=== PATIENT | female | born 1955 | race Caucasian/White ===

== ENCOUNTER 2019-07-20 13:05 | Outpatient (CLI) | payer MEDICARE, BC, SELFPAY ==
--- NOTE | 2019-07-20 13:30 | XR_ITS ---
WS: [id number] SCREENING DEXA SCAN [employer] CLINICAL INFORMATION: POSTMENOPAUSAL COMPARISON: None. FINDINGS: The L1-L4 bone mineral density measures 1.002 g/cm2. This corresponds to a T score score of -1.5 and Z score of 0.1. Left femoral neck bone mineral density measures 0.822 g/cm2. This corresponds to a T score of -1.5 an d Z score of -0.3. Right femoral neck bone mineral density measures 0.846 g/cm2. This corresponds to a T score -1.3of an d Z score of -0.1. Mean femoral neck bone mineral density measures 0.834 g/cm2. This corresponds to a T score of -1.4 an d Z score of -0.2. XR/XR DEXA axial skeleton* [id number] IMPRESSION: Osteopenia Patient's FRAX calculated 10 year probability for major osteoporotic fracture i s 8.8 % and osteoporotic hip fracture is 1.0%.
== END 2019-07-20 13:06 | disposition home or self-care (01) ==
PROVIDERS: Family Provider Family Medicine; PCP Family Medicine; Visit Provider Family Medicine
DX: Z78.0 Asymptomatic menopausal state (principal)
CPT/HCPCS: 77080

== ENCOUNTER 2019-11-03 08:27 | Outpatient (CLI) | payer MEDICARE, BC, SELFPAY ==
--- NOTE | 2019-11-03 08:40 | MM_ITS ---
WS: [id number] BILATERAL DIGITAL SCREENING MAMMOGRAPHY WITH CAD CLINICAL INFORMATION: SCREENING HISTORY: Screening mammogram. No current complaints. COMPARISON: July 27, 2018 TECHNIQUE: Bilateral CC and MLO views. FINDINGS: Scattered fibroglandular densities bilaterally. No suspicious focal mass, asymmetry, calcifications, or architectural distortion. No evidence of malignancy. Lucent centered calcifications stable dystrop hic calcifications. MM/[place] [id number] IMPRESSION: BI-RADS: 2-Benign FOLLOW UP: 1 Year Follow-up Recommend return to annual screening mammography.
== END 2019-11-03 08:28 | disposition home or self-care (01) ==
LOC: RADSHAW 08:31
PROVIDERS: PCP Family Medicine; Visit Provider Family Medicine
DX: Z12.31 Encounter for screening mammogram for malignant neoplasm of breast (principal)
CPT/HCPCS: 77067

== ENCOUNTER → 2020-02-11 15:53 | Outpatient (BNVA) | payer MEDICARE, BC, SELFPAY | PROVIDERS: PCP Family Medicine; Visit Provider Nurse Practitioner Family | DX: Z20.828 Contact with and (suspected) exposure to other viral communicable diseases (principal) | CPT/HCPCS: 87635 ==

== ENCOUNTER 2020-03-28 11:16 | Outpatient (CLI) | payer MEDICARE, BC, SELFPAY ==
--- NOTE | 2020-03-28 11:24 | CT_ITS ---
WS: [id number] Exam: CT chest wo con [id number] Date/Time of Exam: 03/28/2020 11:25 AM Reason For Exam: LUNG NODULE DLP: 624.[address] scans at [facility] use at least one of these dose optimization techniques: automat ed exposure control; mA and/or kV adjustment per patient size (includes targeted exams where dose is matched to clinical indication); or iterative reconstruction. No previous exams for comparison. There are 2 nodular densities in the left lung both measuring about 5 mm each. One is in the lingular segment of the left upper lobe and the second is in the left lower lobe. There is also a 7.6 mm nodu le in the right middle lobe. Prominent right pulmonary hilum is noted. Detail is limited without intr avenous contrast. Remaining lung toscano are clear. There are no infiltrates. The airway is patent. Th e thoracic aorta is normal in caliber. Coronary artery calcifications are noted. The main pulmonary a rteries are prominent which might be seen with pulmonary hypertension. No pleural or pericardial effu angelica identified. CT sections of the upper abdomen show a small cyst in left lobe of the liver. No ramiro tructive bone lesions. CT/CT chest wo con [id number] IMPRESSION: 1. 2 subcentimeter nodules in the left lung both measuring about 5 mm each. One is in the lingula and the second is in the left lower lobe. 2. 7.6 mm nodule in the right middle lobe. 3. Prominent right pulmonary hilum. A mass or lymphadenopathy is not excluded. Detail is limited without intravenous contrast. Follow-up with contrast CT scan of the chest is suggested.
== END 2020-03-28 11:17 | disposition home or self-care (01) ==
LOC: RADWPI 11:22
PROVIDERS: PCP Family Medicine; Visit Provider Family Medicine
DX: R91.1 Solitary pulmonary nodule (principal)
CPT/HCPCS: 71250

== ENCOUNTER 2020-04-04 07:53 | Outpatient (CLI) | payer MEDICARE, BC, SELFPAY ==
--- NOTE | 2020-04-04 08:10 | CT_ITS ---
WS: [id number] CT CHEST TECHNIQUE: Contrast enhanced CT of the chest with coronal and sagittal reformatted images. CLINICAL INFORMATION: MEDIASTINAL MASS, LUNG NODULE COMPARISON: CT chest March 28, 2020 DLP: 674.[address] scans at [facility] use at least one of these dose optimization techniques: automat ed exposure control; mA and/or kV adjustment per patient size (includes targeted exams where dose is matched to clinical indication); or iterative reconstruction. FINDINGS: Mild chronic emphysematous changes. No acute pulmonary infiltrates. Noncalcified pulmonary nodules un changed since March 28, 2020. Largest nodule in the right middle lobe measuring 7.4 mm. Adjacent t o 4 mm satellite nodule. Additional notable nodules in the left lower lobe subpleural measuring 4.7 m m and in the lingula measuring 5 mm. Bronchovascular thickening involving the right greater than left hilum unchanged. No mediastinal or s ubcarinal lymphadenopathy. No peribronchial lymphadenopathy. Left hepatic cyst measuring 9 mm. Diffuse fatty infiltration of the liver. Adrenal glands are normal. Splenule. Small esophageal hiatal hernia. No axillary lymphadenopathy. CT/CT chest w con* [id number] IMPRESSION: 1. Multiple noncalcified pulmonary nodules unchanged. The largest in the right middle lobe measuring 7.4 mm. Recommend 6 month follow-up. 2. Mild bilateral bronchovascular thickening involving both clarisa with slightly prominent lymph nodes nonspecific but likely reactive. Recommend 6 month follo w-up. 3. No mediastinal or peribronchial lymphadenopathy. 4. Mild chronic emphysematous changes. No acute pulmonary infiltrates. 5. Diffuse fatty infiltration of the liver with 9 mm hepatic cyst. Fleischner Society Guidelines Chest CT Fleischner Society guidelines for follow-up and management of incidental pulmon bravo nodule (Radiology 2005; 237:395-400): Nodule 7 - 8 mm: LOW-RISK patient (minimal or absent history of smoking and oth er known risk factors): Initial follow-up CT at 6-12 months then at 18-24 month s if no change. HIGH-RISK patient (history of smoking or other known risk factors): Initial fol low-up CT at 3-6 months, then at 9-12 months and 24 months if no change.
[2020-04-04 08:33] LABS: Blood Urea Nitrogen 10 mg/dL (8-23); Glomerular Filtration Rate 123.4 mL/min (90-130)
[2020-04-04] MEDS: iohexol 300 mg/mL 100 mL Btl IV (08:40)
== END 2020-04-04 07:54 | disposition home or self-care (01) ==
LOC: RADWPI 07:59
PROVIDERS: PCP Family Medicine; Visit Provider Family Medicine
DX: R22.2 Localized swelling, mass and lump, trunk (principal)
CPT/HCPCS: 71260; 82565; 84520; Q9967

== ENCOUNTER 2020-09-12 08:49 | Outpatient (CLI) | payer MEDICARE, BC, SELFPAY ==
--- NOTE | 2020-09-12 09:07 | CT_ITS ---
WS: [id number] CT CHEST WITH INTRAVENOUS CONTRAST HISTORY: MEDIASTINAL MASS, LUNG NODULE TECHNIQUE: Contiguous 5 mm axial imaging performed on the thorax. Coronal and sagittal reformats are submitted. All CT scans at [facility] use at least one of these dose optimization techniq ues: automated exposure control; mA and/or kV adjustment per patient size (includes targeted exams wh ere dose is matched to clinical indication); or iterative reconstruction. CONTRAST: Omnipaque 300; 95 mL IV. DLP: 587.14 mGycm COMPARISON: 04/04/2020 and 03/28/2020 Lungs and central airway: Chronic emphysematous changes with pulmonary hyperexpansion. There are nume mer bilateral pulmonary nodules and interstitial thickening. These nodules range in size from 3 mm t o 7 mm. The largest nodule is 7 mm and slightly lobulated in the RIGHT middle lobe. There is an addit ional 6 mm nodule at the lingula. No new or enlarging nodules. No pneumonia. Pleura: Normal. No pleural effusion. Heart and pericardium: Mild enlargement of the heart. Mediastinum and clarisa: Bilateral subcentimeter mediastinal and hilar lymph nodes. Largest lymph node i s 8 mm at the RIGHT hilum. Vessels: Mild atherosclerosis aorta. Moderate pulmonary artery enlargement. Chest wall and lower neck: No soft tissue masses. Upper abdomen: Small esophageal hiatal hernia. Lobulated cyst in the medial LEFT lobe of the liver is unchanged at 1 cm. No adrenal mass. Osseous structures: Mild increase in thoracic kyphosis. CT/CT chest w con* [id number] IMPRESSION: 1. Multiple stable subcentimeter and noncalcified pulmonary nodules. The large st is 7 mm in the RIGHT middle lobe. No change since 03/28/2020. Recommend foll ow-up noncontrast chest CT in 12 months. 2. Chronic emphysema. 3. No pneumonia. 4. Small hiatal hernia.
[2020-09-12 09:32] LABS: Blood Urea Nitrogen 11 mg/dL (8-23); Glomerular Filtration Rate 123.4 mL/min (90-130)
[2020-09-12] MEDS: iohexol 300 mg/mL 100 mL Btl IV (09:38)
== END 2020-09-12 08:50 | disposition home or self-care (01) ==
PROVIDERS: PCP Family Medicine; Visit Provider Family Medicine
DX: R91.8 Other nonspecific abnormal finding of lung field (principal); K44.9 Diaphragmatic hernia without obstruction or gangrene; J43.9 Emphysema, unspecified
CPT/HCPCS: 71260; 82565; 84520; Q9967

== ENCOUNTER 2020-11-21 09:53 | Outpatient (CLI) | payer MEDICARE, BC, SELFPAY ==
--- NOTE | 2020-11-21 10:04 | MM_ITS ---
WS: [id number] BILATERAL SCREENING DIGITAL MAMMOGRAM WITH CAD HISTORY: SCREENING COMPARISON: 11/03/2019, 07/27/2018 and 06/20/2017 Bilateral CC and MLO views submitted. Computer aided detection analyzed. Breast composition: There are scattered areas of fibroglandular density. No suspicious masses, microc alcifications or architectural distortion. Scattered asymmetries and calcifications are stable. MM/[place] [id number] IMPRESSION: BI-RADS: 2-Benign FOLLOW UP: 1 Year Follow-up
== END 2020-11-21 09:54 | disposition home or self-care (01) ==
LOC: RADSHAW 10:02
PROVIDERS: Absent Provider Obstetrics & Gynecology; PCP Family Medicine; Visit Provider Family Medicine
DX: Z12.31 Encounter for screening mammogram for malignant neoplasm of breast (principal)
CPT/HCPCS: 77067

== ENCOUNTER 2021-06-12 10:02 | Outpatient (CLI) | payer MEDICARE, BC, SELFPAY ==
--- NOTE | 2021-06-12 10:06 | US_ITS ---
WS: [email or web address] ULTRASOUND PELVIS TECHNIQUE: Transvaginal. CLINICAL INFORMATION: POSTMENOPAUSAL BLEEDING LMP: Menopause : No. COMPARISON: None. FINDINGS: Uterus Orientation: Anteverted. Size: 6.2 x 1.8 x 4.1 cm Masses: None. Cervix: Normal. Endometrium: Normal postmenopausal endometrium Endometrium thickness: 3.0 mm. Adnexa: Normal. Right ovary size: 2.0 x 0.7 x 1.1 cm. Left ovary size: 1.6 x 0.8 x 0.9 cm. Free fluid: Trace free fluid in the cul-de-sac Other findings: None. US/US transvaginal [id number] IMPRESSION: 1. Normal uterus. Thin post menopausal endometrium measures 3.0 mm. 2. Small amount of fluid in the endometrial canal and lower uterine segment. 3. Ovaries and adnexa are normal in appearance. 4. Trace free fluid in the cul-de-sac.
== END 2021-06-12 10:03 | disposition home or self-care (01) ==
PROVIDERS: PCP Family Medicine; Visit Provider Family Medicine
DX: N95.0 Postmenopausal bleeding (principal)
CPT/HCPCS: 76830

== ENCOUNTER 2021-11-27 11:00 | Outpatient (CLI) | payer MEDICARE, BC, SELFPAY ==
--- NOTE | 2021-11-27 11:08 | MM_ITS ---
WS: [id number] BILATERAL SCREENING DIGITAL BREAST TOMOSYNTHESIS MAMMOGRAM WITH CAD HISTORY: SCREENING COMPARISON: 11/21/2020, 07/27/2018 Bilateral CC and MLO views with tomosynthesis and synthetic mammography submitted. Computer aided det ection analyzed. Breast composition: There are scattered areas of fibroglandular density. No suspicious masses, microc alcifications or architectural distortion. Benign calcifications. Stable parenchymal pattern within e ach breast. MM/[place] [id number] IMPRESSION: BI-RADS: 2-Benign FOLLOW UP: 1 Year Follow-up
== END 2021-11-27 11:01 | disposition home or self-care (01) ==
PROVIDERS: PCP Family Medicine; Visit Provider Family Medicine
DX: Z12.31 Encounter for screening mammogram for malignant neoplasm of breast (principal)
CPT/HCPCS: 77063; 77067

== ENCOUNTER → 2022-05-29 09:59 | Outpatient (BNVA) | payer MEDICARE, BC, SELFPAY | PROVIDERS: PCP Family Medicine; Visit Provider Family Medicine | DX: E78.00 Pure hypercholesterolemia, unspecified (principal); E78.5 Hyperlipidemia, unspecified; K64.8 Other hemorrhoids; E03.9 Hypothyroidism, unspecified | CPT/HCPCS: 80053; 80061; 84443 ==

== ENCOUNTER 2022-07-03 12:32 | Outpatient (CLI) | payer MEDICARE, BC, SELFPAY ==
--- NOTE | 2022-07-03 12:30 | CT_ITS ---
WS: [id number] CT CHEST WITH INTRAVENOUS CONTRAST HISTORY: f/u on lung nodule TECHNIQUE: Contiguous 5 mm axial imaging performed on the thorax. Coronal and sagittal reformats are submitted. All CT scans at [facility] use at least one of these dose optimization techniques: automated exposure control; mA and/or kV adjustment per patient size (includes targeted exams where dose is matched to clinical indication); or iterative reconstruction. CONTRAST: Omnipaque 350; 95 mL IV. DLP: 234.12 mGy.cm COMPARISON: 03/28/2020, 04/04/2020 and 09/12/2020 Lungs and central airway: Chronic emphysematous changes. Lungs are mildly hyperexpanded with mild ret icular thickening. The largest lobulated nodule is in the RIGHT middle lobe measuring 8 mm. No signif icant increase in size since 03/28/2020. No change in the 6 mm nodule in the lingula. There are a few additional micronodules which are less than 3 mm. There are no new or enlarging nodules. No pneumoni a or consolidation. Subsegmental atelectasis LEFT lower lobe. Pleura: Normal. No pleural effusion. Heart and pericardium: Mild cardiomegaly. No RIGHT heart strain. Mediastinum and clarisa: Small indeterminate lymph nodes in the hilar regions bilaterally. Prominent hil ar lymph nodes measure up to 10 mm. Very similar in appearance to the prior study. No enlarging lymph nodes or progression. Vessels: Mild atherosclerosis aorta. No aneurysm. Pulmonary artery is enlarged 3.5 cm in diameter. Chest wall and lower neck: No soft tissue masses. Upper abdomen: Small hiatal hernia. Slightly lobulated cyst measuring 11 mm in the central liver, jus t anterior to the gallbladder. No adrenal mass. Small splenule. Interval development of a subcapsular cyst measuring 17 mm in the splenic hilum. Osseous structures: No destructive process. CT/CT chest w con* [id number] IMPRESSION: 1. Long-term stability subcentimeter pulmonary nodules. Largest nodule in the RIGHT middle lobe measures 8 mm. No interval change since 03/28/2020. No additi onal workup necessary for these nodules due to long-term stability. 2. Moderate chronic emphysema. No pneumonia. 3. Small hiatal hernia. 4. Interval development of subcapsular splenic cyst at 17 mm. 5. Stable hepatic cyst at 11 mm. 6. Pulmonary hypertension. Pulmonary artery is dilated to 3.5 cm.
[2022-07-03] MEDS: iohexol 350 mg/mL 500 mL Btl (per mL) IV (13:06)
== END 2022-07-03 12:33 | disposition home or self-care (01) ==
LOC: RAD 12:34
PROVIDERS: PCP Family Medicine; Visit Provider Family Medicine
DX: R91.1 Solitary pulmonary nodule (principal); J43.9 Emphysema, unspecified; I27.20 Pulmonary hypertension, unspecified
CPT/HCPCS: 71260; Q9967

== ENCOUNTER 2022-12-04 11:00 | Outpatient (CLI) | payer MEDICARE, BC, SELFPAY ==
--- NOTE | 2022-12-04 11:11 | MM_ITS ---
WS: [id number] BILATERAL SCREENING DIGITAL TOMOSYNTHESIS MAMMOGRAM WITH CAD HISTORY: SCREENING COMPARISON: 11/27/2021, 11/21/2020 Bilateral CC and MLO views with tomosynthesis and synthetic mammography submitted. Computer aided det ection analyzed. Breast composition: There are scattered areas of fibroglandular density. No suspicious masses, microc alcifications or architectural distortion. Benign calcifications. MM/[place] [id number] IMPRESSION: BI-RADS: 2-Benign FOLLOW UP: 1 Year Follow-up
== END 2022-12-04 11:01 | disposition home or self-care (01) ==
LOC: MOBLMAM 11:04
PROVIDERS: PCP Family Medicine; Visit Provider Family Medicine
DX: Z12.31 Encounter for screening mammogram for malignant neoplasm of breast (principal)
CPT/HCPCS: 77063; 77067

== ENCOUNTER → 2023-02-07 11:01 | Outpatient (BNVA) | payer MEDICARE, BC, SELFPAY | PROVIDERS: PCP Family Medicine; Visit Provider Nurse Practitioner Family | DX: R05.9 Cough, unspecified (principal) | CPT/HCPCS: 87426 ==

== ENCOUNTER → 2023-05-01 10:05 | Outpatient (BNVA) | payer MEDICARE, OTHER, SELFPAY | PROVIDERS: PCP Family Medicine; Visit Provider Nurse Practitioner Family | DX: J02.9 Acute pharyngitis, unspecified (principal); R53.83 Other fatigue; J06.9 Acute upper respiratory infection, unspecified | CPT/HCPCS: 87426; 87880 ==

== ENCOUNTER → 2023-06-04 11:46 | Outpatient (BNVA) | payer MEDICARE, OTHER, SELFPAY | PROVIDERS: PCP Family Medicine; Visit Provider Family Medicine | DX: E78.00 Pure hypercholesterolemia, unspecified (principal); E03.9 Hypothyroidism, unspecified; Z00.00 Encounter for general adult medical examination without abnormal findings | CPT/HCPCS: 80053; 80061; 84443; 85025 ==

== ENCOUNTER → 2023-12-15 11:17 | Outpatient (BNVA) | payer MEDICARE, OTHER, SELFPAY | PROVIDERS: PCP Family Medicine; Visit Provider Nurse Practitioner Family | DX: R07.0 Pain in throat (principal); R68.89 Other general symptoms and signs; J34.89 Other specified disorders of nose and nasal sinuses | CPT/HCPCS: 87071; 87400; 87426; 87880 ==

== ENCOUNTER 2024-02-04 13:15 | Outpatient (CLI) | payer MEDICARE, OTHER, SELFPAY ==
--- NOTE | 2024-02-04 13:17 | MM_ITS ---
WS: [email or web address] BILATERAL 3D TOMOSYNTHESIS DIGITAL SCREENING MAMMOGRAPHY WITH CAD CLINICAL INFORMATION: Z12.31 - Encounter for screening mammogram for malignant ... HISTORY: Screening mammogram. No current complaints. COMPARISON: 12/04/2022 TECHNIQUE: Bilateral CC and MLO views. FINDINGS: Scattered fibroglandular densities bilaterally. No suspicious focal mass, asymmetry, calcifications, or architectural distortion. No evidence of malignancy. Vascular calcification. Incidental punctate a nd lucent centered calcifications. MM/MM [facility] tomosynthesis [id number] IMPRESSION: DENSITY: There are scattered areas of fibroglandular density. BI-RADS: 2 - Benign. FOLLOW UP: 1 Year Follow-up Recommend return to annual screening mammography.
== END 2024-02-04 13:16 | disposition home or self-care (01) ==
LOC: RAD 13:15
PROVIDERS: PCP Family Medicine; Visit Provider Nurse Practitioner Women's Health
DX: Z12.31 Encounter for screening mammogram for malignant neoplasm of breast (principal); R92.323 Mammographic fibroglandular density, bilateral breasts; R92.1 Mammographic calcification found on diagnostic imaging of breast
CPT/HCPCS: 77063; 77067

== ENCOUNTER → 2024-06-09 10:47 | Outpatient (BNVA) | payer MEDICARE, OTHER, SELFPAY | PROVIDERS: PCP Family Medicine; Visit Provider Family Medicine | DX: E03.9 Hypothyroidism, unspecified (principal); E78.00 Pure hypercholesterolemia, unspecified; Z00.00 Encounter for general adult medical examination without abnormal findings | CPT/HCPCS: 80053; 80061; 84443; 85025 ==

== ENCOUNTER 2024-06-23 13:56 | Outpatient (CLI) | payer MEDICARE, OTHER, SELFPAY ==
--- NOTE | 2024-06-23 14:00 | XR_ITS ---
WS: [id number] DEXA (DUAL ENERGY X-RAY ABSORPTIOMETRY) Bone mineral density was performed using a [employer] machine. HISTORY: screening COMPARISON: 07/20/2019 Lumbar spine BMD (L1-L4): 0.964 g/cm2 T score: -1.8 Z score: -0.1 Total hip BMD: Left: 0.794 g/cm2. T score: -1.7 Z score: -0.2 Right: 0.818 g/cm2. T score: -1.5 Z score: 0.0 10 year probability of a major osteoporotic fracture is 16.5%. Compared to the prior study from 07/20/2019. Lumbar spine bone mineral density has decreased by 3.8%. Bilateral hips bone mineral density has decreased by 3.4%. XR/XR DEXA axial skeleton* [id number] IMPRESSION: OSTEOPENIA based upon the WHO classification for females. Significant decrease in bone mineral density within the lumbar spine and hips s james the prior study.
== END 2024-06-23 13:57 | disposition home or self-care (01) ==
PROVIDERS: PCP Family Medicine; Visit Provider Family Medicine
DX: Z00.00 Encounter for general adult medical examination without abnormal findings (principal); M85.80 Other specified disorders of bone density and structure, unspecified site
CPT/HCPCS: 77080

== ENCOUNTER → 2024-11-02 13:42 | Outpatient (BNVA) | payer MEDICARE, OTHER, SELFPAY | PROVIDERS: PCP Family Medicine; Visit Provider Nurse Practitioner Women's Health | DX: Z12.4 Encounter for screening for malignant neoplasm of cervix (principal) | CPT/HCPCS: 87624 ==

== ENCOUNTER → 2024-11-17 12:17 | Outpatient (BNVA) | payer MEDICARE, SELFPAY | PROVIDERS: PCP Family Medicine; Visit Provider Nurse Practitioner Women's Health | DX: N92.4 Excessive bleeding in the premenopausal period (principal) | CPT/HCPCS: 76830 ==

== ENCOUNTER → 2024-11-19 14:30 | Outpatient (BNVA) | payer MEDICARE, SELFPAY | PROVIDERS: PCP Family Medicine; Visit Provider Nurse Practitioner Family | DX: R52 Pain, unspecified (principal); R50.9 Fever, unspecified | CPT/HCPCS: 80053; 85025 ==

== ENCOUNTER 2025-02-07 10:52 | Outpatient (CLI) | payer MEDICARE, OTHER, SELFPAY ==
--- NOTE | 2025-02-07 11:00 | MM_ITS ---
WS: [email or web address] BILATERAL 3D TOMOSYNTHESIS DIGITAL SCREENING MAMMOGRAPHY WITH CAD CLINICAL INFORMATION: Z12.39 - Encounter for other screening for malignant neop... HISTORY: Screening mammogram. No current complaints. COMPARISON: 2023 TECHNIQUE: Bilateral CC and MLO views. FINDINGS: Scattered fibroglandular densities bilaterally. No suspicious focal mass, asymmetry, calcifications, or architectural distortion. No evidence of malignancy. Vascular calcification. Punctate and lucent centered calcification. MM/MM [facility] tomosynthesis [id number] IMPRESSION: DENSITY: There are scattered areas of fibroglandular density. BI-RADS: 2 - Benign. FOLLOW UP: 1 Year Follow-up Recommend return to annual screening mammography.
== END 2025-02-07 10:53 | disposition home or self-care (01) ==
LOC: RAD 10:54
PROVIDERS: PCP Family Medicine; Visit Provider Nurse Practitioner Women's Health
DX: Z12.31 Encounter for screening mammogram for malignant neoplasm of breast (principal); R92.1 Mammographic calcification found on diagnostic imaging of breast
CPT/HCPCS: 77063; 77067